=== PATIENT | female | born 1990 | race Caucasian/White ===

== ENCOUNTER 2017-11-18 14:37 | Inpatient (IN) ==
[2017-11-18] MEDS ORDERED: Ondansetron 4 MG/2 ML VIAL IVP PRN (17:22)
[2017-11-18] MEDS ORDERED: Acetaminophen IV 1,000 MG/100 ML INFUS..BTL IVPB ONE (17:22)
[2017-11-18] MEDS ORDERED: Ringers Solution, Lactated 1,000 ML IVC SCH (17:45)
--- NOTE | 2017-11-18 17:47 | OB/GYN History & Physical ---
Date of Encounter: 11/18/17 Time of Encounter: 17:43 Assessment and Plan (1) Acute pelvic pain, female Current visit: Yes Status: Acute Pain control medications ordered (2) Left tubo-ovarian abscess Current visit: Yes Status: Acute IV antibiotics ordered, ultrasound and CBC tomorrow, nothing by mouth after midnight. Urine GC and chlamydia DNA ordered for testing (3) Tobacco dependence due to cigarettes Current visit: Yes Status: Chronic Patient declines nicotine patch staying that she has been in half-way without a nicotine patch in the past and has done fine. She does not want to stop smoking History of Present Illness Chief complaint: Tx for tx of TOA HPI: Ms. Morales is a 27 year old female with LMP 3 weeks ago. Presents as a transfer from [facility] emergency room in [facility] for evaluation and treatment of a left tubo-ovarian abscess. The patient presented to the emergency room this morning for acute onset of left lower quadrant pain which started last night. The patient reports some mild nausea and vomiting. She states the pain has been intermittent on both sides and the abdomen but has localized to the left side at this point. She denies any fevers or chills. She reports that she broke up with her partner of 5-1/2 years a few weeks ago and has had new partners. She reports no abnormal discharge or abnormal uterine bleeding. Her cycles are every month, heavy for 3-4 days with cramps and clots for which she will use a maxi tampon and changes every 2 hours and then they taper off. This is been normal for her since she had her tubal ligation with her 3 years ago. She smokes a pack per day and declines a nicotine patch reporting that she has been without cigarettes in the past while she was in half-way and did not have issues with withdrawal. The patient is upset that she is here and does not know why. We were told at the time of transfer that she requested to come to [place] although the patient reports she had all of her obstetrical care at [facility] in [place]. Her mother is present in the room and also reports that the patient had an abnormal Pap smear a few years ago and never followed up. The patient has not had any GC or chlamydia testing that is seen in the emergency room documents the transferred with the patient. She reports that prior to this episode she has not had any dyspareunia or postcoital bleeding. She reports 3 term pregnancies and 2 sections with a tubal ligation with her last delivery . Past Med Surg Social Fam HX - Past Medical History Source: patient Medical history: asthma Psychiatric history: anxiety, depression, PTSD - Past Surgical History Surgical History: (x2) - Social History Smoking Status: Current every day smoker Smokeless Tobacco Status: No Alcohol use: rarely Drug use: marijuana Obstetrical History - Pregnancies : 3 Term: 3 Livin Medications and Allergies Tramadol HCl [Ultram] 50 mg PO TID PRN #10 tab 08/21/17 [Rx] 3 Allergy/AdvReac Type Severity Reaction Status Date / Time adhesive AdvReac Redness of Verified 08/21/17 13:07 Skin Review of System OB All systems PM: reviewed and no additional remarkable complaints except as stated - Constitutional Constitutional ROS IM: as per HPI - Gastrointestinal Gastrointestinal: bloating, change in bowel habits, cramping, diarrhea, nausea, vomiting - Genitourinary Genitourinary: as per HPI, dysmenorrhea, menorrhagia, pelvic pain - Menstruation Menstruation: as per HPI, menses 8 or > days, period heavy Exam - Vital Signs Vital signs: Initial Vital Signs Temp Pulse Resp BP Pulse Ox 97.9 F 63 16 93/60 100 11/18/17 16:39 11/18/17 16:39 11/18/17 16:39 11/18/17 16:39 11/18/17 16:39 - Constitutional Constitutional: well developed, well nourished, no acute distress, average body habitus - HEENT HEENT: Normocephaly, Mucus Membranes Moist - Neck Neck exam: normal inspection, supple - Lungs Respiratory exam: CTAB - Cardiovascular Cardiovascular exam: RRR - Abdomen Abdomen: Present: bowel sounds normal. Absent: diffuse tenderness, guarding noted, mass Abdomen detail: right lower quadrant: tenderness (soft), left lower quadrant: tenderness - Extremities Extremities exam: normal inspection, warm Deep Tendon Reflex Grade: 2+ Normal - Vulva Vulva: bilateral: normal - Vagina Vagina: Present: normal moisture - Uterus Uterus exam: Present: normal size, normal contour, tender (No cervical motion tenderness) - Adnexa Adnexa: bilateral: tenderness (Right greater than left, unable to appreciate masses d/t tenderness) - Anus/Rectum Anus/Rectum: Present: normal perianal skin Results All other labs normal. - VTE Reasons for not Prescribing Prophylaxis: Treatment not Indicated - Low risk for VTE
[2017-11-18] MEDS: Ringers Solution, Lactated 1,000 ML IVC SCH (18:03)
[2017-11-18] MEDS: Famotidine 20 MG/2 ML VIAL IVP SCH (18:03)
[2017-11-18] MEDS: cefOXitin 2,000 MG in Water for inj. (sterile) 20 ML 10 ML IVP SCH (18:29)
[2017-11-18] MEDS: Ketorolac 30 MG/ML VIAL IVP PRN (18:45)
[2017-11-18] MEDS: Doxycycline 100 MG in 0.9 % Sodium Chloride Mini Bag 100 ML IVPB SCH (20:11)
[2017-11-18] MEDS: *HR* FentaNYL (PF) 100 MCG/2 ML VIAL IVP PRN (22:13)
[2017-11-19] MEDS: cefOXitin 2,000 MG in Water for inj. (sterile) 20 ML 10 ML IVP SCH ×4 (01:22→18:28)
[2017-11-19] MEDS: Ketorolac 30 MG/ML VIAL IVP PRN ×2 (01:33→07:31)
[2017-11-19] MEDS: Ringers Solution, Lactated 1,000 ML IVC SCH (03:22)
[2017-11-19 04:42] LABS: Basophils % 0.1 %; Eosinophils % 2.3 %; Mean Corpuscular Volume 97.3 fL (83.0-100.0)
[2017-11-19 04:43] LABS: Eosinophils # 0.2 K/mcL (0.0-0.6); Hematocrit 36.3 % (35.3-44.9); Hemoglobin 11.8 g/dL (11.5-15.4); Immature Granulocytes % 0.6 % (0-4); Lymphocytes % 21.1 %; Mean Corpuscular HGB Conc 32.5 g/dL (31.6-35.5); Mean Corpuscular Hemoglobin 31.6 pg (28.0-33.3); Mean Platelet Volume 12.4 fL (9.4-12.4); Monocytes # 0.6 K/mcL (0.0-1.3); Monocytes % 6.3 %; Neutrophils # 6.6 K/mcL (1.6-8.9); Nucleated Red Blood Cells 0.2 /100 WBC (0); Platelet Count 101 K/mcL (140-400); Red Blood Count 3.73 M/mcL (3.82-4.97); Segmented Neutrophils % 69.6 %
[2017-11-19] MEDS: Famotidine 20 MG/2 ML VIAL IVP SCH (06:56)
[2017-11-19] MEDS: Doxycycline 100 MG in 0.9 % Sodium Chloride Mini Bag 100 ML IVPB SCH ×2 (07:03→18:35)
[2017-11-19] MEDS ORDERED: Ringers Solution, Lactated 1,000 ML IVC ONE (07:38)
[2017-11-19] MEDS: *HR* FentaNYL (PF) 100 MCG/2 ML VIAL IVP PRN (12:16)
--- NOTE | 2017-11-19 13:16 | OB/GYN Progress Note ---
Date of Encounter: 11/19/17 Time of Encounter: 13:16 - Assessment and Plan (1) Left tubo-ovarian abscess Current Visit: Yes Status: Acute Remains Aebrile with no elevation in WBC noted. US performed: Discussed with Dr. Shrestha. Continue current management plan. Anticipate discharge after completes 48 hours of IV ATB Abdomen/Pelvis/Transvag US 11/19/17 08:30 IMPRESSION: Complex, hypoechoic lesion within the left adnexa, suspicious for a tubo-ovarian abscess measuring 6.9 cm. Previous outside ultrasound report indicates a 5.2 cm probable tubo-ovarian abscess on the left side. There may be associated hydrosalpinx. Subjective - Subjective Interval history: Pt states pain is minimal, tolerates PO diet, continues to decline nicotine patch Patient reports: appetite normal, voiding normally, pain well controlled, ambulating normally Objective - Vital Signs Latest vital signs: Vital Signs Temp Pulse Resp BP Pulse Ox 11/19/17 08:02 98.5 F 59 16 100/63 11/19/17 03:30 98.3 F 54 14 91/54 96 11/19/17 01:10 98.1 F 69 14 97/61 97 11/18/17 20:15 98.0 F 53 14 96/61 100 11/18/17 16:39 97.9 F 63 16 93/60 100 Intake and Output 11/18/17 11/19/17 11/19/17 23:59 07:59 15:59 Intake Total 710 / 710 995 / 995 Output Total / Balance 709 / 709 995 / 995 Intake: IV Fluids 210 / 210 995 / 995 Lactated Ringers 1,000 ML @ 125 975 / 975 mls/hr IVC .Q8H CINDA Rx#: [id number] Mefoxin 2,000 MG In Water for inj. (sterile) 10 ML @ 150 mls/ hr IVP Q6HR CINDA Rx#:[id number] Ofirmev 1,000 mg/100 ml 1,000 100 / 100 mg In 100 ml @ 1000 mls/hr IVPB Q8HR ONE Rx#:[id number] Doxycycline 100 MG In 0.9 % 100 / 100 Sodium Chloride (Mini-Bag +) 100 ML @ 100 mls/hr IVPB Q12HR CINDA Rx#:[id number] Oral 500 / 500 Output: Emesis Other: Stool Characteristics Normal for Patient Weight 64.3 kg 61.008 kg Patient Weight 11/19/17 23:59 Weight 61.008 kg - I&O's I&O's: Intake & Output 11/16/17 11/17/17 11/18/17 11/19/17 23:59 23:59 23:59 23:59 Intake Total 710 / 710 995 / 995 Output Total Balance 709 / 709 995 / 995 Weight 64.3 kg 61.008 kg - Exam Chest: Normal S1, Normal S2 Abdomen: Present: normal appearance, soft - Labs Labs: Abnormal lab results RBC 3.73 M/mcL (3.82-4.97) L 11/19/17 04:30 Plt Count 101 K/mcL (140-400) L 11/19/17 04:30 Nucleated RBCs/100 WBC 0.2 /100 WBC (0) H 11/19/17 04:30 Immature Plt Fraction 14.0 % (1.1-6.1) H 11/19/17 04:30 Consult Discharge Plan - Plan Referrals: NONE,PCP [Primary Care Provider] -
[2017-11-19] MEDS ORDERED: Acetaminophen 325 MG TABLET PO PRN (14:41)
[2017-11-19] MEDS: *HR* HYDROcodone/Acet 5/325 mg TABLET PO PRN (15:15)
[2017-11-19] MEDS: Ibuprofen 600 MG TABLET PO SCH (18:33)
[2017-11-20] MEDS: Ibuprofen 600 MG TABLET PO SCH ×2 (00:29→06:44)
[2017-11-20] MEDS: cefOXitin 2,000 MG in Water for inj. (sterile) 20 ML 10 ML IVP SCH ×2 (00:29→07:21)
[2017-11-20] MEDS: *HR* HYDROcodone/Acet 5/325 mg TABLET PO PRN (00:41)
[2017-11-20 04:14] LABS: Basophils % 0.1 %; Red Cell Distribution Width 13.7 % (11.5-14.5); Segmented Neutrophils % 67.6 %
[2017-11-20 04:16] LABS: Eosinophils # 0.3 K/mcL (0.0-0.6); Eosinophils % 2.7 %; Hemoglobin 11.7 g/dL (11.5-15.4); Immature Granulocytes % 0.4 % (0-4); Immature Platelets 14.3 % (1.1-6.1); Lymphocytes # 2.1 K/mcL (0.6-4.6); Lymphocytes % 22.1 %; Mean Corpuscular HGB Conc 33.4 g/dL (31.6-35.5); Mean Corpuscular Hemoglobin 32.3 pg (28.0-33.3); Mean Corpuscular Volume 96.7 fL (83.0-100.0); Mean Platelet Volume 12.9 fL (9.4-12.4); Monocytes # 0.7 K/mcL (0.0-1.3); Monocytes % 7.1 %; Nucleated Red Blood Cells 0.4 /100 WBC (0); Platelet Count 112 K/mcL (140-400); Red Blood Count 3.62 M/mcL (3.82-4.97)
[2017-11-20 04:28] LABS: Neutrophils # 6.6 K/mcL (1.6-8.9)
[2017-11-20] MEDS: Doxycycline 100 MG in 0.9 % Sodium Chloride Mini Bag 100 ML IVPB SCH (07:22)
--- NOTE | 2017-11-20 07:54 | Event Note ---
Date of Encounter: 11/20/17 Time of Encounter: 07:52 Pt due to IV ATB, IV not patent. Pt refusing to have new IV placed. Discussed with patient recommendation for 48 hours of full IV ATB treatment. Pt continues to refuse. Discussed risks of increasing infection, antibiotic resistance, readmission and sepsis. Pt verbalizes understanding of risks, but still refuses. Will discharge home on po ATB treatment.
--- NOTE | 2017-11-20 08:20 | Discharge Summary ---
Date of Encounter: 11/20/17 Time of Encounter: 08:20 - Discharge Diagnosis (1) Left tubo-ovarian abscess Priority: Primary Status: Acute Comments: Pain well controlled this morning. Pt requesting discharge AMA because she does not wish to have IV restarted to complete antibiotic course. A lengthy discussion was had regarding risks and benefits and pt continues to insist she wants to leave. She is willing to sign AMA paperwork and will continue oral antibiotics at home. RX will be provided. She is to follow up with Dr. Foy next week for repeat ultrasound and labs and verbalizes that she will do this. Discharge AMA today - Discharge Medications Prescriptions: Levofloxacin [Levaquin] 500 mg PO DAILY #14 tablet metroNIDAZOLE [Flagyl] 500 mg PO BID #28 tablet Home Medications: Tramadol HCl [Ultram] 50 mg PO TID PRN #10 tab 08/21/17 [Rx] Acetaminophen [Tylenol] 650 mg PO Q6HR PRN tablet 11/20/17 [Rx] Ibuprofen [Motrin] 600 mg PO Q6HR tablet 11/20/17 [Rx] Levofloxacin [Levaquin] 500 mg PO DAILY #14 tablet 11/20/17 [Rx] metroNIDAZOLE [Flagyl] 500 mg PO BID #28 tablet 11/20/17 [Rx] Allergies/Adverse Reactions: 3 Allergy/AdvReac Type Severity Reaction Status Date / Time adhesive AdvReac Redness of Verified 08/21/17 13:07 Skin Data Procedures and tests throughout hospitalization: Laboratory Tests 11/18/17 11/19/17 11/20/17 18:30 04:30 04:03 WBC 9.5 9.7 RBC 3.73 L 3.62 L Hgb 11.8 11.7 Hct 36.3 35.0 L MCV 97.3 96.7 MCH 31.6 32.3 MCHC 32.5 33.4 RDW 14.0 13.7 Plt Count 101 L 112 L MPV 12.4 12.9 H Immature Gran % 0.6 0.4 Seg Neutrophils % 69.6 67.6 Lymphocytes % 21.1 22.1 Monocytes % 6.3 7.1 Eosinophils % 2.3 2.7 Basophils % 0.1 0.1 Neutrophils # 6.6 6.6 Lymphocytes # 2.0 2.1 Monocytes # 0.6 0.7 Eosinophils # 0.2 0.3 Basophils # 0.0 0.0 Nucleated RBCs/100 WBC 0.2 H 0.4 H Immature Plt Fraction 14.0 H 14.3 H Chlam trachomat DNA PCR NOT DETECTED N.gonorrhoeae DNA (PCR) NOT DETECTED Labs on day of discharge: Labs from last 24 hours 11/20/17 04:03 WBC 9.7 RBC 3.62 L Hgb 11.7 Hct 35.0 L MCV 96.7 MCH 32.3 MCHC 33.4 RDW 13.7 Plt Count 112 L MPV 12.9 H Immature Gran % 0.4 Seg Neutrophils % 67.6 Lymphocytes % 22.1 Monocytes % 7.1 Eosinophils % 2.7 Basophils % 0.1 Neutrophils # 6.6 Lymphocytes # 2.1 Monocytes # 0.7 Eosinophils # 0.3 Basophils # 0.0 Nucleated RBCs/100 WBC 0.4 H Immature Plt Fraction 14.3 H - Impressions ITS Impressions Abdomen/Pelvis/Transvag US 11/19/17 08:30 IMPRESSION: Complex, hypoechoic lesion within the left adnexa, suspicious for a tubo-ovarian abscess measuring 6.9 cm. Previous outside ultrasound report indicates a 5.2 cm probable tubo-ovarian abscess on the left side. There may be associated hydrosalpinx. D/ / 11/19/2017 10:34:58 [facility] Interpreting Provider: Han Thakur MD Date of admission: 11/19/17 10:24 Primary care physician: PCP NONE Discharging clinician: Yasmin Gaytan Anticipated date of discharge: 11/20/17 - Patient Status Disposition: Home, Self-Care Condition: Good Functional capacity at discharge: independent ambulation Overall status at discharge: patient is progressing back to baseline - Discharge Instructions Follow Up With: NONE,PCP [Primary Care Provider] - Mely Foy MD [Partnered Physician] - - Diet and Activity Activity: increase activity as tolerated Diet: regular diet Hospital Course INSTRUCTOR FLYING Reason for admission: pelvic pain Discharge diagnosis: other (tubo-ovarian abscess) Time spent discussing smoking cessation with patient: 3 to 10 minutes Time Attestation: Total time spent providing and/or coordinating discharge services: Time Spent: Less than 30 minutes Exam - Constitutional Vitals: Temp Pulse Resp BP Pulse Ox 97.7 F 62 16 103/68 100 11/20/17 04:07 11/20/17 04:07 11/20/17 04:07 11/20/17 04:07 11/20/17 04:07 General appearance IM: A&O X 3 - Respiratory Respiratory exam: Present: CTAB - Cardiovascular Cardiovascular exam IM: Present: RRR, +S1, +S2 - GI/Abdominal GI/Abdominal exam IM: normal bowel sounds, no peritoneal signs - Rectal Rectal exam: deferred - Extremities Exam Extremities exam IM: Present: full ROM, radial pulses palpable and symmetrical - Neurological Exam Neurological exam: alert, oriented X3 - Psychiatric Additional comments: Pt is frustrated with situation but is feeling mentally well. Denies SI/HI - VTE Reasons for not Prescribing Prophylaxis: Treatment not Indicated - Low risk for VTE
[2017-11-20 10:53] VITALS: BP 122/85
== END 2017-11-20 08:45 | disposition left against medical advice (07) | DRG 759 ==
LOC: 1NENUOBS → 1NENUPED 11-19 19:31
PROVIDERS: ADMIT Obstetrics & Gynecology; ATTEND Obstetrics & Gynecology